=== PATIENT | female | born 1960 | race Caucasian/White ===

== ENCOUNTER 2017-04-07 11:45 | Emergency (ER) | payer OTHER ==
[~2017-04-07] VITALS: Ht 177.8 cm; Wt 80.0 kg
[2017-04-07 11:47] VITALS: BP 137/87; PULSE 72; RESP 16; TEMP 99; O2SAT 100
[2017-04-07] MEDS ORDERED: CELE10TA PO (14:15)
[2017-04-07] MEDS ORDERED: ACETAMINOPHEN/HYDROcodone 325 MG/5 MG TAB PO ONE (14:15)
[2017-04-07] MEDS ORDERED: DIAZ10 PO (14:15)
[2017-04-07] MEDS ORDERED: CLINDAMYCIN INJ 600 MG in SODIUM CHLORIDE 0.9% INJ 100 ML IV ONE (14:15)
[2017-04-07] MEDS ORDERED: KETOROLAC TROMETHAMINE 60 MG/2 ML (IM) VIAL IM ONE (14:15)
[2017-04-07] MEDS ORDERED: VOLT100T (14:16)
[2017-04-07] MEDS ORDERED: VOLT1GEL4 (14:16)
[2017-04-07] MEDS ORDERED: ATEN25TA PO (14:16)
[2017-04-07 14:20] VITALS: BP 152/88; PULSE 59; RESP 16; O2SAT 98
--- NOTE | 2017-04-07 14:28 | PD ---
HPI Chief Complaint: ENT Complaint Time Seen by Provider: 13:51 Travel History International Travel<30 days: No Contact w/Intl Traveler<30days: No Traveled to known affect area: No History of Present Illness HPI 56-year-old female that presents to the ED for evaluation of sore throat and possible dental pain with body aches. Patient has a history rheumatoid arthritis. Per patient his discomfort started 2 days ago on his right back and chest. Per patient his been having fevers and chills. Per patient he has bad dentition and his been noticing having a sore throat as well as mild pain. Per patient he believes that the amounts was causing his symptoms. He denies any cough or runny nose. No congestion. No actual fevers. He does not take any meds presently only takes Voltaren. Patient reports he has no insurance and cannot see a dentist until next year. Patient comes here to get evaluated for this. States that his pain currently is 6 out of 10 and is mainly on the mandible he also has aches on his joints. No abdominal pain. No bowel movement or urinary symptoms. PFSH Past Medical History Bipolar Disorder: Yes Cardiovascular Problems: Yes Chest Pain: Yes Diminished Hearing: No ?: Not Social History Alcohol Use: Yes (RARELY) Tobacco Use: Yes (1/2 PPD) Substance Use: Yes (MARIJUANA) Allergies-Medications (Allergen,Severity, Reaction): Coded Allergies: hydroxychloroquine (Verified Allergy, Severe, 04/07/17) methotrexate (Verified Allergy, Severe, 04/07/17) prednisone (Verified Allergy, Intermediate, Irritability/Anxiety, 04/07/17) patient becomes manic and psychotic with oral prednisone Reported Meds & Prescriptions Reported Meds & Active Scripts Active Reported Voltaren (Diclofenac Sodium) 1 % Gel..gram. Voltaren-Xr (Diclofenac Sodium) 100 Mg Tab.er.24h Atenolol 25 Mg Tab 12.5 Mg PO BID Celexa (Citalopram Hydrobromide) 10 Mg Tab 10 Mg PO DAILY Valium (Diazepam) 10 Mg Tab 10 Mg PO QID PRN Review of Systems Except as stated in HPI: all other systems reviewed are Neg Physical Exam Narrative GENERAL: SKIN: Warm and dry. HEAD: Atraumatic. Normocephalic. EYES: Pupils equal and round. No scleral icterus. No injection or drainage. ENT: No nasal bleeding or discharge. Mucous membranes pink and moist. Tongue is midline. No uvula deviation. Dental: Patient has very bad dentition throughout the mouth. Especially in the upper and lower mouth on the third molars. Most of the third molars are almost completely eroded down the left upper jaw he does have swelling and signs of infection as well as on the right lower jaw. NECK: Trachea midline. No JVD. CARDIOVASCULAR: Regular rate and rhythm. RESPIRATORY: No accessory muscle use. Clear to auscultation. Breath sounds equal bilaterally. GASTROINTESTINAL: Abdomen soft, non-tender, nondistended. Hepatic and splenic margins not palpable. MUSCULOSKELETAL: Extremities without clubbing, cyanosis, or edema. No obvious deformities. NEUROLOGICAL: Awake and alert. No obvious cranial nerve deficits. Motor grossly within normal limits. Five out of 5 muscle strength in the arms and legs. Normal speech. PSYCHIATRIC: Appropriate mood and affect; insight and judgment normal. Data Data Last Documented VS Vital Signs Date Time Temp Pulse Resp B/P (MAP) Pulse Ox O2 Delivery O2 Flow Rate FiO2 04/07/17 14:20 59 16 152/88 (109) 98 Room Air 04/07/17 11:47 99.0 Orders Orders Chest, Single Ap (04/07/17 ) Clindamycin Inj (Cleocin Inj) (04/07/17 14:15) Ketorolac Inj (Toradol Inj) (04/07/17 14:15) Acetamin-Hydrocod 325-5 Mg ([place] 5-325 (04/07/17 14:15) MDM Medical Decision Making Medical Screen Exam Complete: Yes Emergency Medical Condition: Yes Medical Record Reviewed: Yes Interpretation(s) Chest x-ray showed no sign of pneumonia. Differential Diagnosis Dentalgia versus dental infection versus viral illness versus body aches versus normal exam versus pneumonia Narrative Course 56-year-old female that presents to the ED for evaluation of mild pain and body aches. Patient was properly examined and was found to have signs and symptoms consistent with appears to be likely month infection. Patient does appear to have various cavities that appear to be infected. Chest x-ray will be done to rule out pneumonia as patient does have some chest discomfort appears to be mild. No discomfort in nature. This appears to be a typical. I suspect that some of his body aches may be related to his rheumatoid arthritis. He does not appear to be septic on exam with normal vitals. He takes no immunosuppressants. Chest x-ray was negative for acute disease. Patient was pressure. This time we'll treat his symptoms with clindamycin for the mild infection. Patient was given mouthwash. Given a prescription for ibuprofen as well as Lortab. Told to follow with PCP. See ED worsening symptoms. Patient was given a dose here of clindamycin IM as well as Toradol and Lortab. Told to follow with dentist as soon as possible. Diagnosis Primary Impression: Dental infection Patient Instructions: General Instructions, Narcotic given in the ED Additional Instructions: Take medications as prescribed. Follow-up with PCP or dentist See ED for any worsening symptoms. Do not drink or drive while taking pain medication. Apply ice or heat as needed for pain Med/Other Pt SpecificInfo: Prescription(s) given Disposition: 01 DISCHARGE HOME Condition: Stable Tito Bustillos Apr 07, 2017 14:28
[2017-04-07] MEDS ORDERED: HYDR-3533 PO (14:29)
[2017-04-07] MEDS ORDERED: CLIN1CAP5 PO (14:29)
[2017-04-07] MEDS ORDERED: MAGICADU2 SWISH-SWAL (14:29)
[2017-04-07] MEDS ORDERED: IBUP800T23 PO (14:29)
--- NOTE | 2017-04-07 14:39 | RADRPT ---
EXAM DATE/TIME: 04/07/2017 14:25 [facility] COMPARISON: No previous studies available for comparison. INDICATIONS : Shortness of breath. MEDICAL HISTORY : None. SURGICAL HISTORY : None. ENCOUNTER: Initial ACUITY: 1 day PAIN SCORE: 0/10 LOCATION: Bilateral chest FINDINGS: A single view of the chest demonstrates the lungs to be symmetrically aerated without evidence of mas s, infiltrate or effusion. The cardiomediastinal contours are unremarkable. Osseous structures are intact. CONCLUSION: No acute disease. Ben Bonilla MD FACR on April 07, 2017 at 14: 38 Board Certified Radiologist. This report was verified electronically.
[2017-04-07 15:17] VITALS: BP 129/83; PULSE 65; RESP 16; O2SAT 98
== END 2017-04-07 15:36 | disposition home or self-care (01) ==
LOC: NEPD 11:45
DX: K04.7 Periapical abscess without sinus (principal); M06.9 Rheumatoid arthritis, unspecified; R50.9 Fever, unspecified; Z72.0 Tobacco use
CPT/HCPCS: 71010; 96372; 96374; 99284; J1885